=== PATIENT | male | born 1945 | race Caucasian/White ===

== ENCOUNTER 2018-11-29 16:41 | Emergency (ER) | payer MEDICARE, BC ==
--- NOTE | 2018-11-29 16:52 | UC ---
Skin Complaint HPI - HPI Summary HPI Summary: 73 yo male presents with bleeding wound. He tells me that this morning he had a LEFT ear "magnet" implanted behind his left ear to assist with hearing. This was done by Dr. Ku of [place]. The site was sutured and a pressure bandaged applied. Pt states that about 1 hour ago he was laying on the couch and when he turned over the site started bleeding. He thinks he "dislodged" something or popped a suture. He applied pressure to the area and called his surgeon who instructed him to go to the ER. Pt came to for eval. Currently he denies headache, pain, hearing changes, ASA or blood thinner use. - History of Current Complaint Time Seen by Provider: 11/29/18 16:51 Stated Complaint: SUTURES CAME OUT Hx Obtained From: Patient Onset/Duration: Sudden Onset Current Severity: None - Allergy/Home Medications Allergies/Adverse Reactions: Allergies Allergy/AdvReac Type Severity Reaction Status Date / Time No Known Allergies Allergy Verified 11/29/18 17:03 Home Medications: Home Medications Atorvastatin* [Lipitor*] 10 mg PO 1700 11/29/18 [History Confirmed 11/29/18] Cephalexin CAP* [Keflex CAP*] 500 mg PO TID 11/29/18 [History Confirmed 11/29/18 ] Chondroitin Sulfate A Sodium [Optiflex-C] 400 mg PO DAILY 11/29/18 [History Confirmed 11/29/18] Sildenafil Citrate [Viagra] 100 mg PO DAILY PRN 11/29/18 [History Confirmed ] Temazepam CAP* [Restoril CAP*] 15 mg PO BEDTIME 11/29/18 [History Confirmed ] PMH/Surg Hx/FS Hx/Imm Hx - Additional Past Medical History Additional PMH: Erectile dysfunction Endocrine History: Dyslipidemia Cardiovascular History: Hypertension - Surgical History Surgery Procedure, Year, and Place: Left ear magnet 2018 - Family History Known Family History: Positive: Hypertension - Social History Occupation: Retired Lives: With Family Alcohol Use: Occasionally Substance Use Type: None Smoking Status (MU): Never Smoked Tobacco Review of Systems All Other Systems Reviewed And Are Negative: Yes Constitutional: Positive: Negative Skin: Positive: Other - Left ear incision bleeding Eyes: Positive: Negative ENT: Positive: Negative Respiratory: Positive: Negative Cardiovascular: Positive: Negative Neurovascular: Positive: Negative Neurological: Positive: Negative Psychological: Positive: Negative Physical Exam - Summary Physical Exam Summary: GENERAL: NAD. WDWN. No pain distress. SKIN: LEFT posterior auricular region with 4.0cm crescent shaped surgical incision with running sutures in place. Scant bleeding from inferior third of incision. Incision appears well approximated and does not open with moderate manual pulling. NTTP. No sutures appear to have failed. HEENT: Head: See Skin Eyes: EOM intact. Conjunctiva clear without inflammation or discharge. Ears: TMs intact without hemotympanum NECK: Supple. Nontender. CHEST: CTAB. No r/r/w. No accessory muscle use. Breathing comfortably and in no distress. CV: RRR. Without m/r/g. Pulses intact. Cap refill <2seconds NEURO: Alert. PSYCH: Age appropriate behavior. Triage Information Reviewed: Yes Vital Signs: Vital Signs: Temp Pulse Resp BP Pulse Ox 98.5 F 70 18 157/85 98 11/29/18 16:59 11/29/18 16:59 11/29/18 16:59 11/29/18 16:59 11/29/18 16:59 Vital Signs Reviewed: Yes Course/Dx - Course Course Of Treatment: I believe in laying flat and turning onto this affected side, pt disrupted a clot/scab of the healing incision causing some bleeding. The sutures appear intact. He is already on Keflex for prophylactic infection. The site was cleansed with sterile saline and sterile gauze. A pressure dressing was applied. Advised to be careful with the area and sit/sleep in a recliner or upright for tonight. I suspect the site will heal well with appropriate wound care. Strongly encouraged to call his Surgeon again in the morning to see them for a wound check this week. - Diagnoses Provider Diagnosis: Change or removal of surgical wound dressing Discharge - Sign-Out/Discharge Documenting (check all that apply): Patient Departure All imaging exams completed and their final reports reviewed: No Studies - Discharge Plan Condition: Stable Disposition: HOME Referrals: Moise Hay MD [Primary Care Provider] - Additional Instructions: If you develop a fever, shortness of breath, chest pain, new or worsening symptoms - please call your PCP or go to the ED immediately. Your blood pressure was high at todays visit. Please see your primary provider within 4 weeks for recheck and re-evaluation. 1) Leave the dressing in place and keep it clean and dry for 24 hours 2) I recommend that you call your Surgeon in the morning to schedule an appointment this week for a recheck of your wound. - Billing Disposition and Condition Condition: STABLE Disposition: Home
[2018-11-29 17:03] VITALS: BP 157/85
[2018-11-29] MEDS ORDERED: Ibuprofen TAB* 600 MG PO ONE (17:06)
== END 2018-11-29 18:30 | disposition home or self-care (01) ==
LOC: UCEAST 16:41
DX: Z48.00 Encounter for change or removal of nonsurgical wound dressing (principal); I10 Essential (primary) hypertension; R78.5 Finding of other psychotropic drug in blood; N52.9 Male erectile dysfunction, unspecified
CPT/HCPCS: 99212; A9270-GY; G0463

== ENCOUNTER 2021-03-20 09:48 | Observation (INO) ==
[2021-03-20] MEDS ORDERED: Pantoprazole 80 mg in NS BAG 80 MG/250 ML BAG IV ONE (11:04)
[2021-03-20 11:11] LABS: Activated Partial Thrombo Time 29.1 seconds (26.0-38.0); Fibrinogen 276.9 mg/dL (110.8-404.3); INR 1.08 (0.86-1.15)
[2021-03-20 11:30] LABS: ABS Eosinophils 0.1 10^3/ul (0-0.6); ABS Lymphocytes 1.3 10^3/ul (1.0-4.8); ABS Monocytes 0.8 10^3/ul (0-0.8); ABS Neutrophils 3.9 10^3/ul (1.5-7.7); Eosinophil % 1.9 %; Hematocrit 42 % (42-52); Hemoglobin 14.4 g/dL (14.0-18.0); Lymphocyte % 21.4 %; Mean Corpuscular HGB Conc 34 g/dL (31-36); Mean Corpuscular Hemoglobin 33 pg (27-31); Mean Corpuscular Volume 96 fL (80-94); Mean Platelet Volume 7.7 fL (7.4-10.4); Platelet Count 222 10^3/uL (150-450); Red Blood Count 4.41 10^6 /uL (4.18-5.48); Red Cell Distribution Width 13 % (10-15); White Blood Count 6.1 10^3/uL (3.5-10.8)
[2021-03-20 11:38] LABS: Albumin 4.2 g/dL (3.2-5.2); Albumin/Globulin Ratio 1.8 (1-3); Calcium 10.3 mg/dL (8.6-10.3); Globulin 2.3 g/dL (2-4); Potassium 4.4 mmol/L (3.5-5.0); Total Bilirubin 0.7 mg/dL (0.2-1.0); Total Protein 6.5 g/dL (6.4-8.9)
[2021-03-20] MEDS ORDERED: Iohexol 350 (CONTRAST) 500 ML MDV IV ONE (11:43)
[2021-03-20] MEDS ORDERED: Octreotide Acetate 500 MCG in NS 0.9% 100 ml BAG 100 ML IV SCH (12:00)
[2021-03-20] MEDS ORDERED: Pantoprazole 80 mg in NS BAG 80 MG/250 ML BAG IV SCH (12:00)
[2021-03-20] MEDS ORDERED: Pantoprazole VIAL 40 MG VIAL IV ONE (12:00)
[2021-03-20] MEDS ORDERED: Midazolam 10 mg/10 ml VIAL 1 mg/ml 10 ml VIAL (10 mg) ONE (13:04)
[2021-03-20] MEDS ORDERED: fentaNYL 100 mcg/2 ml 50 MCG/ML VIAL ONE (13:05)
[2021-03-20 14:11] LABS: Rapid COVID-19 Molecular Undetected (Undetected)
[2021-03-20 19:42] LABS: Hematocrit 40 % (42-52); Hemoglobin 13.8 g/dL (14.0-18.0)
[2021-03-21 02:08] LABS: Hematocrit 37 % (42-52); Hemoglobin 12.2 g/dL (14.0-18.0)
[2021-03-21 07:14] LABS: Hematocrit 35 % (42-52); Hemoglobin 12.4 g/dL (14.0-18.0)
[2021-03-21 13:55] LABS: Hematocrit 35 % (42-52); Hemoglobin 11.9 g/dL (14.0-18.0)
[2021-03-21 15:17] VITALS: BP 124/70
== END 2021-03-21 16:33 | disposition home or self-care (01) ==
LOC: ED 09:48 → SUATTDRO 14:07 → INTOOBSV 14:07 → MED 14:07
PROVIDERS: ADMIT Internal Medicine; ATTEND Student in an Organized Health Care Education/Training Program